=== PATIENT | female | born 1970 | race Caucasian/White ===

== ENCOUNTER 2025-02-23 13:02 | Emergency (ER) | payer MEDICAID ==
[~2025-02-23] VITALS: Ht 162.6 cm; Wt 46.0 kg
[2025-02-23 13:20] VITALS: TEMP 36.7; O2SAT 99
[2025-02-23] MEDS: LIDOCAINE HCL 1% 20ML VIAL INFIL ONE (14:30)
[2025-02-23] MEDS ORDERED: CEPH500T MT (15:26)
[2025-02-23 15:40] VITALS: BP 114/52; PULSE 85; RESP 16; O2SAT 100
== END 2025-02-23 15:54 | disposition home or self-care (01) ==
LOC: ER 13:02
DX: T16.1XXA Foreign body in right ear, initial encounter (principal); Z79.899 Other long term (current) drug therapy; X58.XXXA Exposure to other specified factors, initial encounter; Y93.89 Activity, other specified; Y92.89 Other specified places as the place of occurrence of the external cause; Y99.8 Other external cause status
CPT/HCPCS: 10120; 99285; J2003; Z7610 ×3